=== PATIENT | male | born 1950 | race Caucasian/White ===

== ENCOUNTER → 2016-07-18 | Outpatient (REF) | payer MEDICARE, OTHER ==
[~2016-07-18] MED LIST: /PRAV20TA PO; /WARF25TA PO; ASPI81TA21 PO; ASPI81TA51 PO; COUM2.5T11 PO; FLON0.05; GLUCTAB6 PO; IBUP200C PO; LEVO50TA4 PO; OXYC-299 PO; OXYC30TA4 PO; PERC5TAB6 PO; PERCOCET PO; PRAV10TA PO; TYLE325T5 PO; move free OR; tramadol
== END ==
LOC: M LAB REF 09:41
PROVIDERS: ATTEND Ophthalmology
DX: H02.839 Dermatochalasis of unspecified eye, unspecified eyelid (principal)

== ENCOUNTER → 2016-10-09 | Outpatient (REF) | payer MEDICARE, OTHER | LOC: M SFHCLERA 13:41 | PROVIDERS: ATTEND Family Medicine | DX: E78.2 Mixed hyperlipidemia (principal); E03.9 Hypothyroidism, unspecified ==

== ENCOUNTER → 2016-10-13 | Outpatient (REF) | payer MEDICARE, OTHER ==
[2016-10-13 11:33] LABS: MEAN CORPUSCULAR HEMOGLOBIN 32.1 pg (27.0-33.0); MEAN CORPUSCULAR HGB CONC 33.9 g/dl (32.0-36.5); MEAN CORPUSCULAR VOLUME 94.6 fl (80.0-96.0); RED CELL DISTRIBUTION WIDTH 12.9 % (11.5-14.5); WHITE BLOOD COUNT 5.4 K/mm3 (4.0-10.0)
[2016-10-13 12:01] LABS: ALBUMIN 3.6 GM/DL (3.2-5.2); ALBUMIN/GLOBULIN RATIO 1.09 (1.00-1.93); ALKALINE PHOSPHATASE 86 U/L (45-117); ALT/SGPT 27 U/L (12-78); ANION GAP 7 MEQ/L (8-16); AST/SGOT 22 U/L (15-37); BILIRUBIN,TOTAL 0.3 MG/DL (0.2-1.0); BLOOD UREA NITROGEN 15 MG/DL (7-18); CALCIUM LEVEL 8.8 MG/DL (8.8-10.2); CARBON DIOXIDE LEVEL 29 MEQ/L (21-32); CHLORIDE LEVEL 107 MEQ/L (98-107); CHOLESTEROL LEVEL 170 MG/DL (<200); CREATININE FOR GFR 0.72 MG/DL (0.70-1.30); GLOMERULAR FILTRATION RATE > 60.0 (>49); GLUCOSE, FASTING 91 MG/DL (80-110); POTASSIUM SERUM 4.9 MEQ/L (3.5-5.1); SODIUM LEVEL 143 MEQ/L (136-145); TOTAL PROTEIN 6.9 GM/DL (6.4-8.2); TRIGLYCERIDES LEVEL 36 MG/DL (<150)
== END ==
LOC: M SFHCLERA 08:06
PROVIDERS: ATTEND Family Medicine
DX: E78.2 Mixed hyperlipidemia (principal); E03.9 Hypothyroidism, unspecified

== ENCOUNTER 2017-01-04 07:15 | Outpatient (CLI) | payer MEDICARE, OTHER ==
[~2017-01-04] VITALS: Ht 180.3 cm; Wt 81.2 kg
[~2017-01-04 07:15] MED LIST changes: +ATOR40TA75 PO; -COUM2.5T11 PO; +COUM2.5T17 PO; -IBUP200C PO; +IBUP200C10 PO; +LEVO50TA5 PO; +NS 1,000 ML IV SCH; +OXYC-141 PO; -OXYC-299 PO; +PERC5TAB12 PO; -PERC5TAB6 PO; -PRAV10TA PO; +PRAV10TA4 PO
[2017-01-04] MEDS ORDERED: PROPOFOL 200 MG/20 ML VIAL As Ordered ONE (07:57)
--- NOTE | 2017-01-04 09:08 | ROOR ---
Patient Name: All Danielle Procedure Date: 01/04/2017 8:43 AM Date of : 1950 Age: 66 Room: [facility] Gender: Male Note Status: Finalized Procedure: Colonoscopy Indications: Screening for colorectal malignant neoplasm Providers: Tay Ventura Jr, MD Referring MD: [facility], [place] Requesting Provider: Medicines: Propofol per Anesthesia Complications: No immediate complications. Procedure: Pre-Anesthesia Assessment: - Prior to the procedure, a History and Physical was performed, and patient medications and allergies were reviewed. The patient is competent. The risks and benefits of the procedure and the sedation options and risks were discussed with the patient. All questions were answered and informed consent was obtained. Patient identification and proposed procedure were verified by the physician and the nurse in the pre-procedure area and in the procedure room. Mental Status Examination: alert and oriented. Airway Examination: normal oropharyngeal airway and neck mobility. Respiratory Examination: clear to auscultation. CV Examination: normal. ASA Grade Assessment: II - A patient with mild systemic disease. After reviewing the risks and benefits, the patient was deemed in satisfactory condition to undergo the procedure. The anesthesia plan was to use moderate sedation / analgesia (conscious sedation). Immediately prior to administration of medications, the patient was re-assessed for adequacy to receive sedatives. The heart rate, respiratory rate, oxygen saturations, blood pressure, adequacy of pulmonary ventilation, and response to care were monitored throughout the procedure. The physical status of the patient was re-assessed after the procedure. The Colonoscope was introduced through the anus and advanced to the cecum, identified by appendiceal orifice and ileocecal valve. The colonoscopy was performed without difficulty. The patient tolerated the procedure well. The quality of the bowel preparation was adequate. Findings: The perianal and digital rectal examinations were normal. Pertinent negatives include normal sphincter tone, no palpable rectal lesions and no anal lesion or abnormality was detected. Multiple small and large-mouthed diverticula were found in the sigmoid colon. The rectum, recto-sigmoid colon, descending colon, transverse colon, ascending colon, cecum, appendiceal orifice and ileocecal valve appeared normal. Impression: - Diverticulosis in the sigmoid colon. - The rectum, recto-sigmoid colon, descending colon, transverse colon, ascending colon, cecum, appendiceal orifice and ileocecal valve are normal. - No specimens collected. Recommendation: - Discharge patient to home (ambulatory). - Repeat colonoscopy in 10 years for screening purposes. Tay Ventura MD Tay Ventura Jr, MD 01/04/2017 9:08:27 AM This report has been signed electronically. Number of Addenda: 0 Note Initiated On: 01/04/2017 8:43 AM Estimated Blood Loss: Estimated blood loss: none.
[2017-01-04 09:30] VITALS: BP 118/67
== END 2017-01-04 09:45 | disposition home or self-care (01) ==
LOC: M OPP 07:15
PROVIDERS: ATTEND Surgery
DX: Z12.11 Encounter for screening for malignant neoplasm of colon (principal); K57.30 Diverticulosis of large intestine without perforation or abscess without bleeding; E78.00 Pure hypercholesterolemia, unspecified; E03.9 Hypothyroidism, unspecified; M19.90 Unspecified osteoarthritis, unspecified site; R06.83 Snoring; L29.0 Pruritus ani; Z79.899 Other long term (current) drug therapy; Z88.5 Allergy status to narcotic agent

== ENCOUNTER → 2017-04-02 | Outpatient (REF) | payer MEDICARE, OTHER ==
[~2017-04-02] MED LIST changes: -NS 1,000 ML IV SCH
[2017-04-02 12:10] LABS: MEAN CORPUSCULAR HEMOGLOBIN 30.9 pg (27.0-33.0); MEAN CORPUSCULAR HGB CONC 32.4 g/dl (32.0-36.5); MEAN CORPUSCULAR VOLUME 95.3 fl (80.0-96.0); PLATELET COUNT, AUTOMATED 252 10^3/uL (150-450); RED CELL DISTRIBUTION WIDTH 12.9 % (11.5-14.5); WHITE BLOOD COUNT 5.5 10^3/uL (4.0-10.0)
[2017-04-02 12:18] LABS: FREE T4 0.98 NG/DL (0.76-1.46)
== END ==
LOC: M SFHCLERA 08:10
PROVIDERS: ATTEND Family Medicine
DX: E03.9 Hypothyroidism, unspecified (principal)

== ENCOUNTER → 2017-10-08 | Outpatient (REF) | payer MEDICARE, OTHER ==
[2017-10-08 11:40] LABS: HEMATOCRIT 41.1 % (42.0-52.0); HEMOGLOBIN 13.9 g/dl (13.5-17.5); MEAN CORPUSCULAR HEMOGLOBIN 31.9 pg (27.0-33.0); MEAN CORPUSCULAR HGB CONC 33.8 g/dl (32.0-36.5); MEAN CORPUSCULAR VOLUME 94.3 fl (80.0-96.0); PLATELET COUNT, AUTOMATED 240 10^3/uL (150-450); RED BLOOD COUNT 4.36 10^6/uL (4.30-6.10); RED CELL DISTRIBUTION WIDTH 12.8 % (11.5-14.5); WHITE BLOOD COUNT 5.4 10^3/uL (4.0-10.0)
[2017-10-08 13:09] LABS: FREE T4 0.94 NG/DL (0.76-1.46)
== END ==
LOC: M SFHCLERA 08:06
DX: E03.9 Hypothyroidism, unspecified (principal)
CPT/HCPCS: 84443

== ENCOUNTER → 2018-04-16 | Outpatient (REF) | payer MEDICARE, OTHER ==
[2018-04-16 12:22] LABS: ALBUMIN 3.9 GM/DL (3.2-5.2); ALBUMIN/GLOBULIN RATIO 1.15 (1.00-1.93); ALKALINE PHOSPHATASE 89 U/L (45-117); ALT/SGPT 32 U/L (12-78); ANION GAP 4 MEQ/L (8-16); AST/SGOT 23 U/L (7-37); BILIRUBIN,TOTAL 0.5 MG/DL (0.2-1.0); BLOOD UREA NITROGEN 14 MG/DL (7-18); CALCIUM LEVEL 9.4 MG/DL (8.8-10.2); CARBON DIOXIDE LEVEL 30 MEQ/L (21-32); CHLORIDE LEVEL 105 MEQ/L (98-107); CHOLESTEROL LEVEL 158 MG/DL (<200); CHOLESTEROL RISK RATIO 2.358 (<5); CREATININE FOR GFR 0.66 MG/DL (0.70-1.30); GLOMERULAR FILTRATION RATE > 60.0 (>49); GLUCOSE, FASTING 82 MG/DL (70-100); HDL CHOLESTEROL 67 MG/DL (>40); LDL CHOLESTEROL 84 MG/DL (<100); NON-HDL-C 91 MG/DL; POTASSIUM SERUM 5.2 MEQ/L (3.5-5.1); SODIUM LEVEL 139 MEQ/L (136-145); TOTAL PROTEIN 7.3 GM/DL (6.4-8.2); TRIGLYCERIDES LEVEL 34 MG/DL (<150)
== END ==
LOC: M SFHCLERA 08:19
DX: E78.2 Mixed hyperlipidemia (principal); E03.9 Hypothyroidism, unspecified
CPT/HCPCS: 84443

== ENCOUNTER → 2018-10-07 | Outpatient (REF) | payer MEDICARE, OTHER ==
[~2018-10-07] MED LIST changes: -/PRAV20TA PO; -/WARF25TA PO; +COUM1TAB18 PO; -IBUP200C10 PO; +IBUP200C25 PO; +OXYC1TAB23 PO; -PERCOCET PO; +PRAV1TAB39 PO
[2018-10-07 12:17] LABS: BLOOD UREA NITROGEN 16 MG/DL (7-18); CALCIUM LEVEL 8.8 MG/DL (8.8-10.2); CARBON DIOXIDE LEVEL 29 MEQ/L (21-32); CHLORIDE LEVEL 107 MEQ/L (98-107); CHOLESTEROL LEVEL 181 MG/DL (<200); CHOLESTEROL RISK RATIO 2.445 (<5); CREATININE FOR GFR 0.68 MG/DL (0.70-1.30); GLOMERULAR FILTRATION RATE > 60.0 (>49); GLUCOSE, FASTING 85 MG/DL (70-100); HDL CHOLESTEROL 74 MG/DL (>40); LDL CHOLESTEROL 101 MG/DL (<100); NON-HDL-C 107 MG/DL; POTASSIUM SERUM 4.6 MEQ/L (3.5-5.1); SODIUM LEVEL 139 MEQ/L (136-145); TRIGLYCERIDES LEVEL 30 MG/DL (<150)
== END ==
LOC: M SFHCLERA 08:21
PROVIDERS: ATTEND Family Medicine
DX: E78.2 Mixed hyperlipidemia (principal); E03.9 Hypothyroidism, unspecified

== ENCOUNTER → 2019-03-12 | Outpatient (REF) | payer MEDICARE, OTHER ==
[2019-03-12 11:50] LABS: BLOOD UREA NITROGEN 15 MG/DL (7-18); CARBON DIOXIDE LEVEL 30 MEQ/L (21-32); CHLORIDE LEVEL 106 MEQ/L (98-107); CHOLESTEROL LEVEL 153 MG/DL (<200); CHOLESTEROL RISK RATIO 1.987 (<5); GLOMERULAR FILTRATION RATE > 60.0 (>49); GLUCOSE, FASTING 91 MG/DL (70-100); HDL CHOLESTEROL 77 MG/DL (>40); LDL CHOLESTEROL 70 MG/DL (<100); NON-HDL-C 76 MG/DL; POTASSIUM SERUM 4.7 MEQ/L (3.5-5.1); SODIUM LEVEL 140 MEQ/L (136-145); TRIGLYCERIDES LEVEL 31 MG/DL (<150)
== END ==
LOC: M SFHCLERA 07:49
PROVIDERS: ATTEND Family Medicine
DX: E78.2 Mixed hyperlipidemia (principal); E03.9 Hypothyroidism, unspecified

== ENCOUNTER → 2019-03-17 | Outpatient (REF) | payer MEDICARE, OTHER | LOC: M SFHCLERA 11:32 | PROVIDERS: ATTEND Family Medicine | DX: L60.8 Other nail disorders (principal); Z23 Encounter for immunization | CPT/HCPCS: 87101; 90472; 90682; 90715; G0008; G0463 ==

== ENCOUNTER → 2019-04-25 | Outpatient (CLI) | payer MEDICARE, OTHER ==
--- NOTE | 2019-04-25 11:13 | REP ---
Two-view chest: 04/25/2019. Indication: Cough. Comparison: 04/02/2014. Findings: The lungs are clear. There is no pleural effusion or pneumothorax. The cardiomediastinal silhouette is unremarkable. Impression: No acute cardiopulmonary process. Electronically Signed by Nitin Pereyra DO 04/25/2019 11:05 A
== END ==
LOC: M LRY 10:25
PROVIDERS: ATTEND Family Medicine
DX: R05 Cough (principal)
CPT/HCPCS: 71046; G0463

== ENCOUNTER → 2019-06-10 | Outpatient (CLI) | payer MEDICARE, OTHER ==
[~2019-06-10] MED LIST changes: +CONRAY-43 43% 50ML VIAL (Q9960) As Ordered ONE; +LIDOCAINE 1% MDV 20ML VIAL As Ordered ONE; +methylPREDNISolone SUSP 40 MG/ML (DEPO-medrol) VIAL (J1030) As Ordered ONE
--- NOTE | 2019-06-10 18:26 | REP ---
Left hip injection The procedure was performed under the direct supervision of Dr. Moore. The benefits and risks including but not limited to pain infection and bleeding and anaphylaxis were explained to the patient and informed consent was obtained. The left femoral neck was localized using fluoroscopic guidance. The skin was prepped and draped in a sterile fashion. 1% lidocaine was used as a local anesthetic. Using fluoroscopic guidance a 22-gauge spinal needle was inserted and advanced to the femoral neck. 0.5 ml of Conray 43 was injected to verify placement. 6 ml of a solution containing 5 ml of 1% Xylocaine and 2 ml of Depo-Medrol 40 mg was injected. The needle was then removed. The patient tolerated the procedure well and there were no immediate complications. Less than 6 seconds of fluoro time was utilized for this procedure. Electronically Signed by ESTELA Bautista 06/10/2019 04:14 P Electronically Signed by Minesh Moore MD 06/10/2019 06:17 P
== END ==
LOC: M RADPRO 08:26
PROVIDERS: ATTEND Physician Assistant
DX: M16.12 Unilateral primary osteoarthritis, left hip (principal)
CPT/HCPCS: 20610; 77002; J1030; Q9960

== ENCOUNTER → 2019-10-01 | Outpatient (CLI) | payer MEDICARE, OTHER ==
[~2019-10-01] MED LIST changes: -CONRAY-43 43% 50ML VIAL (Q9960) As Ordered ONE; -LIDOCAINE 1% MDV 20ML VIAL As Ordered ONE; -methylPREDNISolone SUSP 40 MG/ML (DEPO-medrol) VIAL (J1030) As Ordered ONE
[2019-10-01 11:56] LABS: BASO # 0.1 10^3/uL (0.0-0.2); BASO % 0.8 % (0.0-1.0); EOS # 0.2 10^3/uL (0.0-0.5); EOS % 2.7 % (0.0-3.0); HEMATOCRIT 38.7 % (42.0-52.0); LYMPH # 1.1 10^3/uL (1.5-5.0); LYMPH % 17.9 % (24.0-44.0); MEAN CORPUSCULAR HEMOGLOBIN 31.7 pg (27.0-33.0); MEAN CORPUSCULAR HGB CONC 33.6 g/dl (32.0-36.5); MEAN CORPUSCULAR VOLUME 94.4 fl (80.0-96.0); MONO # 0.7 10^3/uL (0.0-0.8); MONO % 11.3 % (0.0-5.0); NEUTROPHILS # 4.3 10^3/uL (1.5-8.5); NEUTROPHILS % 66.8 % (36.0-66.0); PLATELET COUNT, AUTOMATED 265 10^3/uL (150-450); WHITE BLOOD COUNT 6.4 10^3/uL (4.0-10.0)
[2019-10-01 13:04] LABS: ERYTHROCYTE SEDIMENTATION RATE 18 mm/hr (0-20)
== END ==
LOC: M LRY 09:10
PROVIDERS: ATTEND Physician Assistant
DX: Z96.653 Presence of artificial knee joint, bilateral (principal); E78.2 Mixed hyperlipidemia; E03.9 Hypothyroidism, unspecified

== ENCOUNTER → 2019-10-01 | Outpatient (REF) | payer MEDICARE, OTHER ==
[2019-10-01 12:44] LABS: CHOLESTEROL RISK RATIO 2.073 (<5); THYROID STIMULATING HORMONE 1.86 uIU/ML (0.358-3.740)
== END ==
LOC: M SFHCLERA 09:02
PROVIDERS: ATTEND Family Medicine
DX: E78.2 Mixed hyperlipidemia (principal); E03.9 Hypothyroidism, unspecified

== ENCOUNTER → 2019-10-09 | Outpatient (CLI) | payer MEDICARE, OTHER ==
--- NOTE | 2019-10-09 14:59 | REP ---
TRIPLE PHASE BONE SCAN OF THE KNEES: Following the intravenous administration of 22 millicuries technetium 99m MDP, patient's knees are imaged in the flow phase in the anterior and posterior projections. There is symmetrical blood flow bilaterally. Immediate blood pool and 3-hour delayed images are performed in the knees and various projections. Photopenic knee prostheses are seen bilaterally. There is no abnormal blood pooling. There is normal delayed activity in the osseous structures of the knee status post arthroplasty. No asymmetric increased activity is seen bilaterally. IMPRESSION: Bilateral knee arthroplasties showing expected normal uptake in the osseous structures along the prosthetic components. No asymmetric abnormality. Electronically Signed by Yan Downing MD 10/09/2019 03:42 P
== END ==
LOC: M RAD 10:24
PROVIDERS: ATTEND Physician Assistant
DX: Z96.652 Presence of left artificial knee joint (principal)
CPT/HCPCS: 78315; A9503

== ENCOUNTER → 2019-11-05 | Outpatient (CLI) | payer MEDICARE, OTHER ==
[~2019-11-05] MED LIST changes: +ASPI81TA85 PO; +MS C15TA8 PO; +QC A650T3 PO; +TRAM50TA2 PO; +XARE10TA PO
[2019-11-05 10:44] LABS: HEMATOCRIT 39.9 % (42.0-52.0); HEMOGLOBIN 12.9 g/dl (13.5-17.5); MEAN CORPUSCULAR HEMOGLOBIN 30.9 pg (27.0-33.0); MEAN CORPUSCULAR HGB CONC 32.3 g/dl (32.0-36.5); MEAN CORPUSCULAR VOLUME 95.7 fl (80.0-96.0); PLATELET COUNT, AUTOMATED 256 10^3/uL (150-450); RED BLOOD COUNT 4.17 10^6/uL (4.30-6.10); WHITE BLOOD COUNT 6.5 10^3/uL (4.0-10.0)
[2019-11-05 10:55] LABS: INR 1.06; PROTHROMBIN TIME 13.5 SECONDS (11.8-14.0)
[2019-11-05 11:10] LABS: ERYTHROCYTE SEDIMENTATION RATE 15 mm/hr (0-20)
[2019-11-05 11:12] LABS: ALBUMIN 4.1 GM/DL (3.2-5.2); ALT/SGPT 31 U/L (12-78); BILIRUBIN,TOTAL 0.6 MG/DL (0.2-1.0); BLOOD UREA NITROGEN 15 MG/DL (7-18); CALCIUM LEVEL 9.6 MG/DL (8.8-10.2); CARBON DIOXIDE LEVEL 30 MEQ/L (21-32); CHLORIDE LEVEL 101 MEQ/L (98-107); CREATININE FOR GFR 0.66 MG/DL (0.70-1.30); GLOMERULAR FILTRATION RATE > 60.0 (>49); GLUCOSE, FASTING 85 MG/DL (70-100); POTASSIUM SERUM 4.7 MEQ/L (3.5-5.1); SODIUM LEVEL 136 MEQ/L (136-145); TOTAL PROTEIN 7.3 GM/DL (6.4-8.2)
--- NOTE | 2019-11-05 11:30 | REP ---
CHEST, TWO VIEWS: COMPARISON: 04/25/2019 Two views of the chest were performed and demonstrate no acute infiltrate. The heart is normal in size. The mediastinal silhouette is unchanged. There are degenerative changes of the spine with mild curvature toward the right. There are two mild chronic compression deformities of the lower thoracic spine unchanged. IMPRESSION: No acute pulmonary disease. Electronically Signed by Yan Downing MD 11/05/2019 12:57 P
--- NOTE | 2019-11-06 08:37 | ECGEPIP ---
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 Rule out prior septal infarction. No prior tracing for comparison. Clincal correlation advised Electronically Signed on 11-06-2019 8:37:14 EDT by Srinath Abernathy
== END ==
LOC: M LAB 09:43
PROVIDERS: ATTEND Orthopaedic Surgery
DX: Z01.818 Encounter for other preprocedural examination (principal); M16.12 Unilateral primary osteoarthritis, left hip

== ENCOUNTER → 2019-11-07 | Outpatient (CLI) | payer MEDICARE, OTHER | LOC: M LABSMTC 11:08 | PROVIDERS: ATTEND Anesthesiology | DX: Z01.818 Encounter for other preprocedural examination (principal); Z11.59 Encounter for screening for other viral diseases ==

== ENCOUNTER 2019-11-10 06:01 | Inpatient (IN) | payer MEDICARE, OTHER ==
--- NOTE | 2019-11-07 11:57 | HPE ---
DATE OF ANTICIPATED ADMISSION: 11/10/2019 ATTENDING PHYSICIAN: Dr. Sony Oreilly HISTORY: This is a pleasant 69-year-old male patient with progressively worsening left hip pain and stiffness who has failed to improve with conservative management. He has consented for surgical intervention for his continued symptoms. He has been consented by Dr. Sony Oreilly for a left total hip arthroplasty. ALLERGIES: NO KNOWN DRUG ALLERGIES. CURRENT MEDICATIONS: - Patanol solution 1 drop both eyes as needed - 81 mg aspirin one by mouth daily - tizanidine 1 tablet by mouth three times a day as needed - Flonase 1 spray each nostril daily - levothyroxine 50 mcg one by mouth daily - atorvastatin 40 mg one by mouth daily PAST MEDICAL HISTORY: Hyperlipidemia. Hypothyroidism Allergic rhinitis Chronic left knee pain. Actinic keratosis. PAST SURGICAL HISTORY: Left leg open wound. Left total knee replacement. Right total knee replacement. FAMILY HISTORY: Noncontributory. SOCIAL HISTORY: The patient is a nonsmoker and does not use alcohol. REVIEW OF SYSTEMS: Denies fever, chills, chest pain, shortness breath, nausea, vomiting, diarrhea, recent upper respiratory or urinary tract infection symptoms. Reports pain with weightbearing activity in the left hip. PHYSICAL EXAMINATION: Height 5, 7-1/2. Weight 179.8. Temperature 98.6. Blood pressure 122/40. Pulse 68. Respirations 40. He is normocephalic, atraumatic, in no apparent distress. Neck is supple and nontender with no lymphadenopathy or jugular venous distention (JVD). S1, S2 auscultated with no murmurs, rubs, or gallops. Lungs: Clear to auscultation bilaterally with no wheezes, rales, or rhonchi. Abdomen: Soft, nontender. Left hip with discomfort through range of motion and left lower extremity is well perfused and has intact neurovascular status. CHEST X-RAY: No acute cardiopulmonary process. EKG: Normal sinus rhythm, left axis deviation with probable left anterior hemiblock, poor precordial R wave progression. LABORATORY DATA: Red count 4.17, hemoglobin 12.9, hematocrit 39.9. ESR 15. BUN 15, creatinine 0.66. PT 13.5, INR 1.06. MEDICAL OPTIMIZATION: By Dr. Metzger present today for review. Patient is optimized for left total hip arthroplasty. IMPRESSION: Left hip symptomatic degenerative changes. PLAN: Consented for left total hip arthroplasty with Dr. Sony Oreilly. Patient has stopped his baby aspirin and is aware medications to take prior to procedure. He will be nothing by mouth after midnight the night prior.
[~2019-11-10] VITALS: Ht 180.3 cm; Wt 82.1 kg
[2019-11-10] VITALS (8 sets, daily range): BP systolic 105–120; BP diastolic 62–66
[~2019-11-10 06:01] MED LIST changes: +LIDOCAINE 1% MDV 20ML VIAL SQ PRN; +LR 1,000 ML IV SCH; -MS C15TA8 PO; -QC A650T3 PO; -TRAM50TA2 PO; -XARE10TA PO
[2019-11-10] MEDS ORDERED: ceFAZolin 1GM VIAL (J0690 PER 500MG) As Ordered ONE (07:13)
[2019-11-10] MEDS ORDERED: EPINEPHrine INJ 1 MG/ML 1ML AMP As Ordered ONE (07:14)
[2019-11-10] MEDS ORDERED: TRANEXAMIC ACID 100 MG/ML 10ML VIAL As Ordered ONE (07:14)
[2019-11-10] MEDS ORDERED: BUPIVACAINE LIPOSOME/PF 1.3% 20ML VIAL (13.3MG/ML)(EXPAREL)(C9290 PER1MG) As Ordered ONE (07:15)
[2019-11-10] MEDS ORDERED: ceFAZolin 2 GM/D5W 50 ML IV BAG (J0690 PER 500MG) As Ordered ONE (07:17)
[2019-11-10] MEDS ORDERED: ceFAZolin SOD 2 GM in IV 1 EA IV ONE (07:30)
--- NOTE | 2019-11-10 07:52 | IPN ---
DATE: 11/10/2019 The patient is seen and examined. He wishes to go ahead with a left total hip arthroplasty. He understands the nature of this and the risks of bleeding, infection, damage to nerves, vessels, persistent pain, wear, loosening, dislocation, leg length inequality, blood clots, medical problems, among others.
[2019-11-10] MEDS ORDERED: fentaNYL 100 MCG/2 ML INJECTION (J3010) As Ordered ONE (08:13)
[2019-11-10] MEDS ORDERED: LIDOCAINE 2% 100MG/5ML SDV (FOR ANES.) As Ordered ONE (08:13)
[2019-11-10] MEDS ORDERED: MIDAZOLAM INJ 2MG/2ML VIAL (J2250 PER 1MG) As Ordered ONE (08:13)
[2019-11-10] MEDS ORDERED: propofoL 200 MG/20 ML VIAL As Ordered ONE ×2 (08:13→08:26)
[2019-11-10] MEDS ORDERED: ONDANSETRON 4MG/2ML VIAL As Ordered ONE (08:13)
[2019-11-10] MEDS ORDERED: ePHEDrine SULFATE 25 MG/5 ML(5MG/ML) SYRINGE As Ordered ONE (08:18)
[2019-11-10] MEDS ORDERED: ACETAMINOPHEN 1000MG 100ML IV BTL (OFIRMEV) (J0131 PER 10MG) As Ordered ONE (08:19)
[2019-11-10] MEDS ORDERED: PHENYLephrine HCL 500 MCG/5 ML (100MCG/ML) SYRINGE (J2370) As Ordered ONE ×2 (08:28→09:28)
[2019-11-10] MEDS ORDERED: KETAMINE HCL 200 MG/20 ML VIAL As Ordered ONE (09:24)
[2019-11-10] MEDS ORDERED: fentaNYL 100 MCG/2 ML INJECTION (J3010) IV PRN (10:00)
[2019-11-10] MEDS ORDERED: HYDROMORPHONE HCL 0.5 MG/ 0.5 ML SYRINGE (J1170 PER 1) IV PRN ×2 (10:00→10:30)
[2019-11-10] MEDS ORDERED: ONDANSETRON 4MG/2ML VIAL IV PRN (10:00)
[2019-11-10] MEDS ORDERED: LR 1,000 ML IV SCH (10:00)
[2019-11-10] MEDS ORDERED: ACETAMINOPHEN TAB 650MG DOSE (2X325MG) PO PRN (10:15)
[2019-11-10] MEDS: LR 1,000 ML IV SCH ×2 (10:15→23:35)
[2019-11-10] MEDS ORDERED: PERCOCET 5MG/325MG TAB PO PRN ×3 (10:15→17:00)
--- NOTE | 2019-11-10 10:37 | IPN ---
DATE: 11/10/2019 Postoperative x-ray shows excellent position of the components. The screws appear to be in good position. The overall leg length looks to be appropriate and symmetric. [facility]
--- NOTE | 2019-11-10 10:49 | CR.PDOC ---
General Date of Consultation: Nov 10, 2019 Consultation REASON FOR CONSULTATION/CHIEF COMPLAINT: s/p L RENE HISTORY OF PRESENT ILLNESS: 69 y.o male w/ PMH of HLD & Hypothyroidism is being admitted s/p L RENE. Patient is seen in PACU, comfortable, still has no sensation or strength in his lower extremities due to the anesthesia. He has no complaints at this time. He denies any shortness of breath, chest pain, nausea, vomiting or diarrhea. 10 point review of system is negative except for above ALLERGIES: Please see below. HOME MEDICATIONS: Please see below. PAST MEDICAL HISTORY: 1. Hypothyroidism. 2. Hyperlipidemia. PAST SURGICAL HISTORY: 1. Bilateral knee replacement FAMILY HISTORY: Positive for heart disease SOCIAL HISTORY: Denies smoking. Social lives Denies drug use PHYSICAL EXAMINATION: VITAL SIGNS: Please see below. GENERAL: No distress HEENT: Normocephalic, atraumatic, moist mucous membranes NECK: Supple CARDIOVASCULAR EXAMINATION: S1, S2, no murmurs RESPIRATORY EXAMINATION: Clear to auscultation, no wheezing ABDOMINAL EXAMINATION: Soft, nontender, nondistended, positive bowel sounds EXTREMITIES: Range of motion limited due to anesthesia SKIN: No rash NEUROLOGICAL EXAMINATION: Alert and oriented 3, no focal deficits PSYCHIATRIC EXAMINATION: Calm and cooperative LABORATORY DATA: Please see below. ASSESSMENT/PLAN: 69-year-old male with past medical history of hypothyroidism and hyperlipidemia is being admitted status post left total hip arthroplasty. 1. Left total hip arthroplasty. Some management as per primary team, DVT prophylaxis for Xarelto. 2. Hypothyroidism. Continue levothyroxine 3. Hyperlipidemia. Continue atorvastatin Vital Signs/I&O Vital Signs Date Time Temp Pulse Resp B/P (MAP) Pulse Ox O2 Delivery O2 Flow Rate FiO2 11/10/19 10:20 97.3 54 16 100/64 (76) 100 Room Air 11/10/19 09:49 2 Allergies Coded Allergies: morphine (Verified Allergy, Intermediate, NAUSEA, RASH, 11/04/19) Home Medications Scheduled Aspirin (Aspir 81) 81 Mg Tablet.dr, 81 MG PO DAILY, #30 (Reported) Atorvastatin Calcium (Atorvastatin Calcium) 40 Mg Tab, 40 MG PO DAILY, (Reported) Levothyroxine Sodium (Levothyroxine Sodium) 50 Mcg Tab, 50 MCG PO DAILY, (Reported) PINEDA BELLO MD Nov 10, 2019 10:49
[2019-11-10] MEDS: LEVOTHYROXINE 50MCG TABLET (0.05MG) PO SCH (13:17)
[2019-11-10] MEDS: ATORVASTATIN 20 MG TAB PO SCH (13:17)
[2019-11-10] MEDS: HYDROMORPHONE HCL 0.5 MG/ 0.5 ML SYRINGE (J1170 PER 1) IV PRN ×2 (14:45→20:50)
[2019-11-10] MEDS: ceFAZolin SOD 2 GM in IV 1 EA IV SCH (16:09)
[2019-11-10] MEDS ORDERED: KETOROLAC 30 MG/ML 1ML VIAL IV ONE (16:45)
[2019-11-10] MEDS: PERCOCET 5MG/325MG TAB PO PRN ×2 (18:28→23:14)
--- NOTE | 2019-11-10 22:55 | REP ---
LEFT HIP: Two views of left hip performed. There is a total left hip prosthesis in good position. Osseous structures are intact and well aligned. Metallic skin tana are seen laterally. Electronically Signed by Yan Downing MD 11/10/2019 11:17 P
[2019-11-11] MEDS: ceFAZolin SOD 2 GM in IV 1 EA IV SCH (00:55)
[2019-11-11 02:00] VITALS: BP 104/65
[2019-11-11] MEDS: HYDROMORPHONE HCL 0.5 MG/ 0.5 ML SYRINGE (J1170 PER 1) IV PRN (02:21)
[2019-11-11] MEDS: PERCOCET 5MG/325MG TAB PO PRN ×3 (04:48→14:14)
[2019-11-11 06:00] VITALS: BP 115/68
[2019-11-11] MEDS: LEVOTHYROXINE 50MCG TABLET (0.05MG) PO SCH (06:06)
[2019-11-11] MEDS ORDERED: MS C15TA8 PO (06:59)
[2019-11-11] MEDS ORDERED: PERC5TAB12 PO (06:59)
[2019-11-11] MEDS ORDERED: XARE10TA PO (07:50)
[2019-11-11 08:30] LABS: HEMATOCRIT 30.3 % (42.0-52.0); HEMOGLOBIN 9.8 g/dl (13.5-17.5); MEAN CORPUSCULAR HEMOGLOBIN 31.5 pg (27.0-33.0); MEAN CORPUSCULAR HGB CONC 32.3 g/dl (32.0-36.5); MEAN CORPUSCULAR VOLUME 97.4 fl (80.0-96.0); PLATELET COUNT, AUTOMATED 190 10^3/uL (150-450); RED BLOOD COUNT 3.11 10^6/uL (4.30-6.10); WHITE BLOOD COUNT 7.8 10^3/uL (4.0-10.0)
[2019-11-11 08:35] VITALS: BP 108/59
[2019-11-11] MEDS ORDERED: MORPHINE 15 MG SA TAB PO SCH (09:00)
[2019-11-11] MEDS: MIRALAX *UNIT DOSE* 17GM PACKET PO SCH (09:22)
[2019-11-11] MEDS: ASPIRIN 81 MG ENTERIC TAB PO SCH (09:22)
[2019-11-11] MEDS: MOM 30ML SUSPENSION UDC PO SCH (09:22)
[2019-11-11] MEDS: ATORVASTATIN 20 MG TAB PO SCH (09:23)
[2019-11-11] MEDS ORDERED: KETOROLAC 30 MG/ML 1ML VIAL IV PRN (09:45)
[2019-11-11 10:00] VITALS: BP 109/67
[2019-11-11 14:00] VITALS: BP 112/68
[2019-11-11] MEDS ORDERED: HYDROmorphone 2 MG TAB As Ordered ONE (15:07)
[2019-11-11] MEDS: HYDROmorphone 2 MG TAB PO PRN ×2 (15:08→20:09)
[2019-11-11] MEDS: RIVAROXABAN 10 MG TAB (XARELTO) PO SCH (17:05)
[2019-11-11 22:00] VITALS: BP 112/68
[2019-11-12] MEDS: HYDROmorphone 2 MG TAB PO PRN ×3 (00:36→11:42)
[2019-11-12] MEDS: PERCOCET 5MG/325MG TAB PO PRN (02:34)
[2019-11-12 06:00] VITALS: BP 110/67
[2019-11-12] MEDS ORDERED: ACETAMINOPHEN TAB 650MG DOSE (2X325MG) PO SCH (06:00)
[2019-11-12] MEDS: LEVOTHYROXINE 50MCG TABLET (0.05MG) PO SCH (06:09)
[2019-11-12] MEDS ORDERED: traMADol 50 MG TAB PO PRN (06:30)
[2019-11-12] MEDS ORDERED: XARE10TA PO (07:18)
[2019-11-12] MEDS: MIRALAX *UNIT DOSE* 17GM PACKET PO SCH (09:05)
[2019-11-12] MEDS: ASPIRIN 81 MG ENTERIC TAB PO SCH (09:05)
[2019-11-12] MEDS: MOM 30ML SUSPENSION UDC PO SCH (09:05)
[2019-11-12] MEDS: ATORVASTATIN 20 MG TAB PO SCH (09:05)
--- NOTE | 2019-11-12 09:43 | REP ---
LEFT HIP, TWO VIEWS: Two views of the left hip are performed. There is a total hip prosthesis in good position, unchanged since the prior study of 11/10/2019. IMPRESSION: Stable exam. Electronically Signed by Yan Downing MD 11/13/2019 10:26 A
--- NOTE | 2019-11-12 12:59 | IPNPDOC ---
Text Note Date of Service The patient was seen on 11/12/19. NOTE SUBJECTIVE: Left hip pain as expected in [facility] site on dilaudid. Working with PT. VITAL SIGNS: Please see below. GENERAL: No distress HEENT: Normocephalic, atraumatic, moist mucous membranes NECK: Supple CARDIOVASCULAR EXAMINATION: S1, S2, no murmurs RESPIRATORY EXAMINATION: Clear to auscultation, no wheezing ABDOMINAL EXAMINATION: Soft, nontender, nondistended, positive bowel sounds EXTREMITIES: Range of motion limited due to anesthesia SKIN: No rash NEUROLOGICAL EXAMINATION: Alert and oriented 3, no focal deficits PSYCHIATRIC EXAMINATION: Calm and cooperative LABORATORY DATA: Please see below. ASSESSMENT/PLAN: 69-year-old male with past medical history of hypothyroidism and hyperlipidemia, bilateral knee replacements, chronic pain , allergic rhiniti s, actinic keratosis was admitted status post elective left total hip arthroplasty. 1. Left total hip arthroplasty. Some management as per primary team, DVT prophylaxis for Xarelto., Pain management as per ortho. 2. Hypothyroidism. Continue levothyroxine 3. Hyperlipidemia. Continue atorvastatin VS,Fishbone, I+O VS, Fishbone, I+O Vital Signs Date Time Temp Pulse Resp B/P (MAP) Pulse Ox O2 Delivery O2 Flow Rate FiO2 11/12/19 12:12 18 11/12/19 11:42 Room Air 11/12/19 06:00 98.6 96 110/67 (81) 91 11/11/19 04:48 2.0 I&O- Last 24 Hours up to 6 AM 11/12/19 06:00 Intake Total 1770 ml Output Total 1875 ml Balance -105 ml XIAO MENSAH MD Nov 12, 2019 12:59
[2019-11-12 14:00] VITALS: BP 116/65
--- NOTE | 2019-11-12 14:40 | IPN ---
DATE: 11/12/2019 Patient seen and examined today. He is having a fair amount a hip pain still. I repeated the x-ray and this shows unchanged appearance. The cup seems to be well seated but is a little deeper than typical due to his very soft bone. It does not appear to be changed at all since his postoperative x-ray. I also reviewed this with one of my partners. The position of the stem looks excellent. The overall leg length looks good based on the clinical exam and the x-ray appearance. We are going to continue with partial weightbearing on this side as this cup gradually solidifies periodically obtain x-rays.
[2019-11-12] MEDS: ACETAMINOPHEN 500 MG TAB PO SCH ×2 (14:57→22:05)
[2019-11-12] MEDS: RIVAROXABAN 10 MG TAB (XARELTO) PO SCH (18:20)
[2019-11-12 21:13] VITALS: BP 102/66
[2019-11-13] MEDS: traMADol 50 MG TAB PO PRN ×2 (04:24→09:42)
[2019-11-13 05:18] VITALS: BP 115/72
[2019-11-13] MEDS ORDERED: QC A650T3 PO ×2 (05:20→05:30)
[2019-11-13] MEDS ORDERED: TRAM50TA2 PO ×2 (05:20→05:30)
[2019-11-13] MEDS: LEVOTHYROXINE 50MCG TABLET (0.05MG) PO SCH (06:06)
[2019-11-13] MEDS: ACETAMINOPHEN 500 MG TAB PO SCH (06:06)
[2019-11-13] MEDS: ATORVASTATIN 20 MG TAB PO SCH (09:34)
[2019-11-13] MEDS: ASPIRIN 81 MG ENTERIC TAB PO SCH (09:34)
[2019-11-13] MEDS: HYDROmorphone 2 MG TAB PO PRN ×2 (09:36→12:44)
[2019-11-13] MEDS: MIRALAX *UNIT DOSE* 17GM PACKET PO SCH (09:40)
[2019-11-13] MEDS: MOM 30ML SUSPENSION UDC PO SCH (09:40)
[2019-11-13 14:00] VITALS: BP 141/91
--- NOTE | 2019-11-13 16:20 | RO ---
DATE OF PROCEDURE: 11/10/2019 PREOPERATIVE DIAGNOSIS: Left hip osteoarthritis, severe. POSTOPERATIVE DIAGNOSIS: Left hip osteoarthritis, severe. PROCEDURE: Left total hip arthroplasty using a [place] size 8 high offset +12, 36 ball and a 56 cup with two acetabular screws. SURGEON: Sony Oreilly MD STRAIGHT LINE EDGER: BLANK Parker ANESTHESIA: Spinal. ESTIMATED BLOOD LOSS (EBL): 500. COMPLICATIONS: None. INDICATIONS: 69-year-old gentleman who has had severe pain and arthritis in his left hip and he wished to go ahead with a hip replacement. He is well aware of the risks and nature of the procedure. DESCRIPTION OF PROCEDURE The patient was taken to the operating room and placed in the right lateral decubitus position on the [place] positioner. The left hip was prepped and draped in usual sterile fashion. A time-out was performed. I then created a longitudinal incision over the lateral aspect of the hip. Sharp dissection was carried down through subcutaneous tissue until the fascia was encountered. This was incised. I then divided the anterior 40% of the abductor off the anterior aspect of the hip and exposed the head and neck. We were able to dislocate the head relatively easily because the joint was a little bit laterally subluxed. I then used a canal initiating reamer, the canal finding reamer, the lateralizing reamer and then sequentially reamed up to a size 7, which had reasonably good purchase. I then made the neck cut at about three-quarters of a fingerbreadth up from the lesser trochanter and we directed our attention the acetabulum. He had copious amounts of labrum and soft tissue around the acetabulum, which made this fairly challenging, but I was able to get it cleaned out quite nicely. Also judging on the x-rays it looked like I needed to medialize the acetabulum in order to get a good concentric fit and so, I sequentially reamed starting with a 48 and reamed up to 55, which had good concentric reaming and good bleeding bone. It was noted that the cancellous bone in the acetabulum was relatively soft. However, the rim was reasonably sclerotic. I then impacted in the standard 56 cup and had an excellent fit and was it was very tight. It was all the way down to the floor. The apex hole eliminator was placed followed by the polyethylene and once I impacted in the polyethylene the cup rotated. So, I actually removed the cup, replaced it with a cluster cup in the same anteversion and horizontal tilt and ended up placing two screws to secure the cup due to this tendency for it to rotate. Substantial bone graft was placed behind the cup from the reamings. The screws were drilled, measured and appropriate length screw 115, 120 were placed and these had excellent purchase in the bone. The liner was then impacted in place well seated. The cup remained in an excellent position. I then directed attention to the femoral side. I sequentially broached up to a size 7. I then decided to go larger and reamed to an 8 and broached up to an 8 feet, which had an excellent fit and fill. The high offset necks were then used and I chose a high offset probably due to his anatomy, but also due to the fact that I did have to deepen the cup to some degree. The neck length was chosen to be a +12 high offset, which had good stability in extension external rotation and flexion internal rotation. I did have to remove osteophytes with an osteotome both anteriorly and posteriorly around the acetabulum. There did not appear to be any impingement with trialing and there was minimal shuck in full extension. I had irrigated multiple times. I again irrigated at this point and placed the actual size 8 high offset stem [place] impacted it in place. Excellent fit and fill was noted. The +12, 36 ball was impacted and the hip was reduced. Again, I put the hip through range of motion. I was very pleased with the position of the components and in the stability. The final deep irrigation was performed. The tranexamic acid (TXA) was placed and I repaired the minimus with #1 Vicryl suture. I again irrigated, repaired the abductor with #1 Vicryl suture and excellent repair was noted. I did place the Exparel in the deep tissues. The fascia annalee was repaired #1 Vicryl suture in running Stratafix. Subcu was closed with #2-0 Vicryl and the skin with tana. Sterile dressing was applied. He was taken to recovery room in stable condition. There were no known complications. Postoperative x-ray is being done right now. The commercial escrow assistant was instrumental in holding retractors and assisting in reducing and dislocating the hip and assisting in wound closure. REBECCA
== END 2019-11-13 15:20 | disposition home or self-care (01) | DRG 470 ==
LOC: M OR 06:01 → M MS5PR 12:15
PROVIDERS: ADMIT Orthopaedic Surgery; ATTEND Orthopaedic Surgery
PROC: 0SRB02Z Replacement of Left Hip Joint with Metal on Polyethylene Synthetic Substitute, Open Approach (ICD-10-PCS; principal; 2019-11-10 07:30)
DX: M16.12 Unilateral primary osteoarthritis, left hip (principal); E78.5 Hyperlipidemia, unspecified; E03.9 Hypothyroidism, unspecified; J30.9 Allergic rhinitis, unspecified; L57.0 Actinic keratosis; Z96.653 Presence of artificial knee joint, bilateral; Z11.59 Encounter for screening for other viral diseases; Z88.5 Allergy status to narcotic agent; Z79.82 Long term (current) use of aspirin; Z79.899 Other long term (current) drug therapy

== ENCOUNTER → 2020-04-07 | Outpatient (CLI) | payer MEDICARE, OTHER ==
[~2020-04-07] MED LIST changes: -ASPI81TA85 PO; +ASPI81TA86 PO; -LIDOCAINE 1% MDV 20ML VIAL SQ PRN; -LR 1,000 ML IV SCH; +MS C15TA8 PO; +QC A650T3 PO; +TRAM50TA2 PO; +XARE10TA PO
[2020-04-07 11:33] LABS: BASO % 0.7 % (0.0-1.0); EOS # 0.1 10^3/uL (0.0-0.5); EOS % 1.9 % (0.0-3.0); HEMATOCRIT 39.8 % (42.0-52.0); HEMOGLOBIN 12.6 g/dl (13.5-17.5); LYMPH # 1.2 10^3/uL (1.5-5.0); LYMPH % 20.9 % (24.0-44.0); MEAN CORPUSCULAR HEMOGLOBIN 29.4 pg (27.0-33.0); MEAN CORPUSCULAR HGB CONC 31.7 g/dl (32.0-36.5); MEAN CORPUSCULAR VOLUME 92.8 fl (80.0-96.0); MONO # 0.7 10^3/uL (0.0-0.8); MONO % 12.7 % (0.0-5.0); NEUTROPHILS # 3.6 10^3/uL (1.5-8.5); NEUTROPHILS % 63.6 % (36.0-66.0); PLATELET COUNT, AUTOMATED 261 10^3/uL (150-450); RED BLOOD COUNT 4.29 10^6/uL (4.30-6.10); WHITE BLOOD COUNT 5.7 10^3/uL (4.0-10.0)
== END ==
LOC: M WUC 08:54
PROVIDERS: ATTEND Family Medicine
DX: D64.9 Anemia, unspecified (principal)

== ENCOUNTER → 2020-09-20 | Outpatient (CLI) | payer MEDICARE, OTHER ==
[2020-09-20 10:10] LABS: BASO % 0.6 % (0.0-1.0); EOS # 0.1 10^3/uL (0.0-0.5); EOS % 2.2 % (0.0-3.0); HEMATOCRIT 39.8 % (42.0-52.0); LYMPH # 1.1 10^3/uL (1.5-5.0); LYMPH % 20.3 % (24.0-44.0); MEAN CORPUSCULAR HEMOGLOBIN 31.1 pg (27.0-33.0); MEAN CORPUSCULAR HGB CONC 32.7 g/dl (32.0-36.5); MEAN CORPUSCULAR VOLUME 95.2 fl (80.0-96.0); MONO # 0.7 10^3/uL (0.0-0.8); MONO % 12.5 % (2.0-8.0); NEUTROPHILS # 3.4 10^3/uL (1.5-8.5); PLATELET COUNT, AUTOMATED 234 10^3/uL (150-450); RED BLOOD COUNT 4.18 10^6/uL (4.30-6.10); WHITE BLOOD COUNT 5.4 10^3/uL (4.0-10.0)
[2020-09-20 10:52] LABS: ALBUMIN 3.7 GM/DL (3.2-5.2); ALT/SGPT 26 U/L (12-78); BILIRUBIN,TOTAL 0.5 MG/DL (0.2-1.0); BLOOD UREA NITROGEN 13 MG/DL (7-18); CALCIUM LEVEL 9.4 MG/DL (8.8-10.2); CARBON DIOXIDE LEVEL 27 MEQ/L (21-32); CHLORIDE LEVEL 106 MEQ/L (98-107); CHOLESTEROL LEVEL 154 MG/DL (<200); CHOLESTEROL RISK RATIO 1.855 (<5); CREATININE FOR GFR 0.58 MG/DL (0.70-1.30); FREE T4 0.92 NG/DL (0.76-1.46); GLOMERULAR FILTRATION RATE > 60.0 (>42); GLUCOSE, FASTING 84 MG/DL (70-100); HDL CHOLESTEROL 83 MG/DL (>40); LDL CHOLESTEROL 64 MG/DL (<100); NON-HDL-C 71 MG/DL; POTASSIUM SERUM 4.4 MEQ/L (3.5-5.1); SODIUM LEVEL 140 MEQ/L (136-145); TOTAL PROTEIN 7.1 GM/DL (6.4-8.2); TRIGLYCERIDES LEVEL 34 MG/DL (<150)
== END ==
LOC: M WUC 08:33
PROVIDERS: ATTEND Nurse Practitioner Family
DX: E03.9 Hypothyroidism, unspecified (principal); E78.2 Mixed hyperlipidemia; Z12.5 Encounter for screening for malignant neoplasm of prostate; D64.9 Anemia, unspecified
CPT/HCPCS: 36415; 80053; 80061; 84439; 84443; 85025; G0103

== ENCOUNTER → 2020-09-22 | Outpatient (CLI) | payer MEDICARE, OTHER | LOC: M WUC 13:32 | PROVIDERS: ATTEND Nurse Practitioner Family | DX: D64.9 Anemia, unspecified (principal) ==

== ENCOUNTER → 2021-03-09 | Outpatient (CLI) | payer MEDICARE, OTHER ==
[2021-03-09 10:27] LABS: BASO % 0.5 % (0.0-1.0); EOS # 0.1 10^3/uL (0.0-0.5); EOS % 2.3 % (0.0-3.0); HEMATOCRIT 39.1 % (42.0-52.0); LYMPH # 1.1 10^3/uL (1.5-5.0); LYMPH % 18.7 % (24.0-44.0); MEAN CORPUSCULAR HEMOGLOBIN 31.7 pg (27.0-33.0); MEAN CORPUSCULAR HGB CONC 33.2 g/dl (32.0-36.5); MEAN CORPUSCULAR VOLUME 95.4 fl (80.0-96.0); MONO # 0.7 10^3/uL (0.0-0.8); MONO % 11.8 % (2.0-8.0); NEUTROPHILS # 3.8 10^3/uL (1.5-8.5); NEUTROPHILS % 66.3 % (36.0-66.0); PLATELET COUNT, AUTOMATED 248 10^3/uL (150-450); WHITE BLOOD COUNT 5.7 10^3/uL (4.0-10.0)
[2021-03-09 12:32] LABS: ALT/SGPT 32 U/L (12-78); BILIRUBIN,TOTAL 0.5 MG/DL (0.2-1.0); BLOOD UREA NITROGEN 16 MG/DL (7-18); CALCIUM LEVEL 9.1 MG/DL (8.8-10.2); CARBON DIOXIDE LEVEL 27 MEQ/L (21-32); CHLORIDE LEVEL 108 MEQ/L (98-107); CHOLESTEROL LEVEL 165 MG/DL (<200); CREATININE FOR GFR 0.59 MG/DL (0.70-1.30); GLOMERULAR FILTRATION RATE > 60.0 (>42); GLUCOSE, FASTING 92 MG/DL (70-100); HDL CHOLESTEROL 75 MG/DL (>40); NON-HDL-C 90 MG/DL; POTASSIUM SERUM 4.6 MEQ/L (3.5-5.1); SODIUM LEVEL 139 MEQ/L (136-145); TRIGLYCERIDES LEVEL 33 MG/DL (<150)
[2021-03-09 12:33] LABS: ALBUMIN 3.6 GM/DL (3.2-5.2); FERRITIN 54 NG/ML (26-388); LDL CHOLESTEROL 83 MG/DL (<100)
== END ==
LOC: M WUC 08:21
PROVIDERS: ATTEND Nurse Practitioner Family
DX: E78.2 Mixed hyperlipidemia (principal); Z86.2 Personal history of diseases of the blood and blood-forming organs and certain disorders involving the immune mechanism

== ENCOUNTER → 2021-09-28 | Outpatient (CLI) | payer MEDICARE, OTHER ==
[2021-09-28 09:52] LABS: BASO % 0.7 % (0.0-1.0); EOS # 0.2 10^3/uL (0.0-0.5); EOS % 2.5 % (0.0-3.0); HEMATOCRIT 39.8 % (42.0-52.0); HEMOGLOBIN 13.2 g/dl (13.5-17.5); LYMPH # 0.9 10^3/uL (1.5-5.0); LYMPH % 15.8 % (24.0-44.0); MEAN CORPUSCULAR HEMOGLOBIN 31.2 pg (27.0-33.0); MEAN CORPUSCULAR HGB CONC 33.2 g/dl (32.0-36.5); MEAN CORPUSCULAR VOLUME 94.1 fl (80.0-96.0); MONO # 0.8 10^3/uL (0.0-0.8); MONO % 13.9 % (2.0-8.0); NEUTROPHILS # 3.9 10^3/uL (1.5-8.5); NEUTROPHILS % 66.6 % (36.0-66.0); PLATELET COUNT, AUTOMATED 235 10^3/uL (150-450); RED BLOOD COUNT 4.23 10^6/uL (4.30-6.10); WHITE BLOOD COUNT 5.9 10^3/uL (4.0-10.0)
[2021-09-28 10:26] LABS: ALT/SGPT 32 U/L (12-78); BLOOD UREA NITROGEN 18 MG/DL (7-18); CALCIUM LEVEL 9.6 MG/DL (8.8-10.2); CARBON DIOXIDE LEVEL 26 MEQ/L (21-32); CHLORIDE LEVEL 107 MEQ/L (98-107); CREATININE FOR GFR 0.58 MG/DL (0.70-1.30); GLOMERULAR FILTRATION RATE > 60.0 (>42); GLUCOSE, FASTING 96 MG/DL (70-100); POTASSIUM SERUM 4.4 MEQ/L (3.5-5.1); SODIUM LEVEL 140 MEQ/L (136-145)
[2021-09-28 10:27] LABS: BILIRUBIN,TOTAL 0.5 MG/DL (0.2-1.0); CHOLESTEROL LEVEL 165 MG/DL (<200); CHOLESTEROL RISK RATIO 2.088 (<5); FERRITIN 61 NG/ML (26-388); FREE T4 0.95 NG/DL (0.76-1.46); HDL CHOLESTEROL 79 MG/DL (>40); LDL CHOLESTEROL 80 MG/DL (<100); NON-HDL-C 86 MG/DL; TOTAL PROTEIN 7.4 GM/DL (6.4-8.2); TRIGLYCERIDES LEVEL 31 MG/DL (<150)
== END ==
LOC: M WUC 08:14
PROVIDERS: ATTEND Nurse Practitioner Family
DX: E03.9 Hypothyroidism, unspecified (principal); E78.2 Mixed hyperlipidemia; Z86.2 Personal history of diseases of the blood and blood-forming organs and certain disorders involving the immune mechanism

== ENCOUNTER → 2022-03-15 | Outpatient (CLI) | payer MEDICARE, OTHER ==
[~2022-03-15] MED LIST changes: -GLUCTAB6 PO; +GLUCTAB7 PO
[2022-03-15 10:18] LABS: BASO % 0.6 % (0.0-1.0); EOS # 0.1 10^3/uL (0.0-0.5); EOS % 2.2 % (0.0-3.0); HEMATOCRIT 40.4 % (42.0-52.0); HEMOGLOBIN 13.2 g/dl (13.5-17.5); LYMPH % 15.7 % (24.0-44.0); MEAN CORPUSCULAR HEMOGLOBIN 31.7 pg (27.0-33.0); MEAN CORPUSCULAR HGB CONC 32.7 g/dl (32.0-36.5); MEAN CORPUSCULAR VOLUME 97.1 fl (80.0-96.0); MONO # 0.8 10^3/uL (0.0-0.8); MONO % 11.9 % (2.0-8.0); NEUTROPHILS # 4.4 10^3/uL (1.5-8.5); NEUTROPHILS % 69.1 % (36.0-66.0); PLATELET COUNT, AUTOMATED 240 10^3/uL (150-450); RED BLOOD COUNT 4.16 10^6/uL (4.30-6.10); WHITE BLOOD COUNT 6.4 10^3/uL (4.0-10.0)
[2022-03-15 10:39] LABS: HEMOGLOBIN A1c 5.7 %
[2022-03-15 11:07] LABS: ALBUMIN 3.7 GM/DL (3.2-5.2); ALT/SGPT 32 U/L (12-78); BILIRUBIN,TOTAL 0.4 MG/DL (0.2-1.0); BLOOD UREA NITROGEN 15 MG/DL (7-18); CALCIUM LEVEL 9.3 MG/DL (8.8-10.2); CARBON DIOXIDE LEVEL 27 MEQ/L (21-32); CHLORIDE LEVEL 106 MEQ/L (98-107); CHOLESTEROL LEVEL 163 MG/DL (<200); CHOLESTEROL RISK RATIO 2.012 (<5); CREATININE FOR GFR 0.69 MG/DL (0.70-1.30); FERRITIN 66 NG/ML (26-388); GLOMERULAR FILTRATION RATE > 60.0 (>42); GLUCOSE, FASTING 98 MG/DL (70-100); HDL CHOLESTEROL 81 MG/DL (>40); IRON (FE) 94 UG/DL (65-175); LDL CHOLESTEROL 77 MG/DL (<100); NON-HDL-C 82 MG/DL; PERCENT SATURATION 28.9 % (19.7-50.0); POTASSIUM SERUM 4.3 MEQ/L (3.5-5.1); SODIUM LEVEL 137 MEQ/L (136-145); TOTAL IRON BINDING CAPACITY 325 UG/DL (250-450); TOTAL PROTEIN 7.1 GM/DL (6.4-8.2); TRIGLYCERIDES LEVEL 27 MG/DL (<150)
== END ==
LOC: M WUC 08:35
PROVIDERS: ATTEND Family Medicine
DX: E03.9 Hypothyroidism, unspecified (principal); E66.3 Overweight; E78.2 Mixed hyperlipidemia; Z86.2 Personal history of diseases of the blood and blood-forming organs and certain disorders involving the immune mechanism

== ENCOUNTER → 2022-09-18 | Outpatient (CLI) | payer MEDICARE, OTHER ==
[2022-09-18 12:54] LABS: BASO % 0.7 % (0.0-1.0); EOS # 0.2 10^3/uL (0.0-0.5); EOS % 2.5 % (0.0-3.0); HEMATOCRIT 40.1 % (42.0-52.0); HEMOGLOBIN 13.2 g/dl (13.5-17.5); LYMPH # 1.2 10^3/uL (1.5-5.0); LYMPH % 20.5 % (24.0-44.0); MEAN CORPUSCULAR HEMOGLOBIN 31.6 pg (27.0-33.0); MEAN CORPUSCULAR HGB CONC 32.9 g/dl (32.0-36.5); MEAN CORPUSCULAR VOLUME 95.9 fl (80.0-96.0); MONO # 0.7 10^3/uL (0.0-0.8); MONO % 11.4 % (2.0-8.0); NEUTROPHILS # 3.8 10^3/uL (1.5-8.5); NEUTROPHILS % 64.4 % (36.0-66.0); PLATELET COUNT, AUTOMATED 240 10^3/uL (150-450); RED BLOOD COUNT 4.18 10^6/uL (4.30-6.10)
[2022-09-18 13:24] LABS: FERRITIN 45.1 NG/ML (10.5-307.3); PERCENT SATURATION 26.6 % (19.7-50.0); THYROID STIMULATING HORMONE 2.014 uIU/ML (0.55-4.78)
== END ==
LOC: M WUC 08:50
PROVIDERS: ATTEND Family Medicine
DX: Z86.2 Personal history of diseases of the blood and blood-forming organs and certain disorders involving the immune mechanism (principal); Z12.5 Encounter for screening for malignant neoplasm of prostate
CPT/HCPCS: 36415; 82728; 83550; 84443; 85025; G0103

== ENCOUNTER → 2023-03-20 | Outpatient (CLI) | payer MEDICARE, OTHER ==
[2023-03-20 11:35] LABS: BASO % 0.6 % (0.0-1.0); EOS # 0.2 10^3/uL (0.0-0.5); HEMATOCRIT 40.1 % (42.0-52.0); HEMOGLOBIN 13.4 g/dl (13.5-17.5); LYMPH # 1.2 10^3/uL (1.5-5.0); LYMPH % 17.7 % (24.0-44.0); MEAN CORPUSCULAR HEMOGLOBIN 32.1 pg (27.0-33.0); MEAN CORPUSCULAR HGB CONC 33.4 g/dl (32.0-36.5); MEAN CORPUSCULAR VOLUME 96.2 fl (80.0-96.0); MONO # 0.9 10^3/uL (0.0-0.8); MONO % 13.4 % (2.0-8.0); NEUTROPHILS # 4.4 10^3/uL (1.5-8.5); NEUTROPHILS % 64.9 % (36.0-66.0); PLATELET COUNT, AUTOMATED 252 10^3/uL (150-450); RED BLOOD COUNT 4.17 10^6/uL (4.30-6.10); WHITE BLOOD COUNT 6.7 10^3/uL (4.0-10.0)
[2023-03-20 12:03] LABS: IRON (FE) 104 UG/DL (65-175); PERCENT SATURATION 32.6 % (19.7-50.0); TOTAL IRON BINDING CAPACITY 319 UG/DL (250-425)
[2023-03-20 12:14] LABS: ALBUMIN 3.9 G/DL (3.2-5.2); ALKALINE PHOSPHATASE 102 U/L (46-116); ALT/SGPT 33 U/L (7.0-40); AST/SGOT 27 U/L (<34); BILIRUBIN,TOTAL 0.7 MG/DL (0.3-1.2); BLOOD UREA NITROGEN 16 MG/DL (9-23); CALCIUM LEVEL 9.2 MG/DL (8.3-10.6); CARBON DIOXIDE LEVEL 27 MMOL/L (20-31); CHLORIDE LEVEL 104 MMOL/L (98-107); CHOLESTEROL LEVEL 159 MG/DL (<200); CREATININE FOR GFR 0.65 MG/DL (0.70-1.30); FERRITIN 50.5 NG/ML (10.5-307.3); GLOMERULAR FILTRATION RATE > 60.0 (>42); GLUCOSE, FASTING 82 MG/DL (74-106); POTASSIUM SERUM 4.3 MMOL/L (3.5-5.1); SODIUM LEVEL 139 MMOL/L (136-145); THYROID STIMULATING HORMONE 1.963 uIU/ML (0.55-4.78); TOTAL PROTEIN 7.1 G/DL (5.7-8.2); TRIGLYCERIDES LEVEL 34 MG/DL (<150)
[2023-03-20 13:13] LABS: CHOLESTEROL RISK RATIO 2.02 (<5); HDL CHOLESTEROL 78.5 MG/DL (>40); LDL CHOLESTEROL 73.7 MG/DL (<100); NON-HDL-C 80.5 MG/DL
== END ==
LOC: M WUC 08:16
PROVIDERS: ATTEND Family Medicine
DX: Z12.5 Encounter for screening for malignant neoplasm of prostate (principal); Z86.2 Personal history of diseases of the blood and blood-forming organs and certain disorders involving the immune mechanism; E03.9 Hypothyroidism, unspecified; E78.2 Mixed hyperlipidemia
CPT/HCPCS: 36415; 80053; 80061; 82728; 83550; 84443; 85025; G0103

== ENCOUNTER → 2023-09-06 | Outpatient (CLI) | payer MEDICARE, OTHER ==
[2023-09-06 11:15] LABS: ALBUMIN 3.7 G/DL (3.2-5.2); ALKALINE PHOSPHATASE 101 U/L (46-116); ALT/SGPT 26 U/L (7.0-40); AST/SGOT 19 U/L (<34); BILIRUBIN,TOTAL 0.6 MG/DL (0.3-1.2); BLOOD UREA NITROGEN 15 MG/DL (9-23); CALCIUM LEVEL 9.3 MG/DL (8.3-10.6); CARBON DIOXIDE LEVEL 30 MMOL/L (20-31); CHLORIDE LEVEL 107 MMOL/L (98-107); CHOLESTEROL LEVEL 146 MG/DL (<200); CHOLESTEROL RISK RATIO 2.09 (<5); CREATININE FOR GFR 0.58 MG/DL (0.70-1.30); GLOMERULAR FILTRATION RATE > 60.0 (>42); GLUCOSE, FASTING 93 MG/DL (74-106); HDL CHOLESTEROL 69.8 MG/DL (>40); IRON (FE) 79 UG/DL (65-175); LDL CHOLESTEROL 68.4 MG/DL (<100); NON-HDL-C 76.2 MG/DL; PERCENT SATURATION 26.4 % (19.7-50.0); POTASSIUM SERUM 4.7 MMOL/L (3.5-5.1); SODIUM LEVEL 141 MMOL/L (136-145); TOTAL IRON BINDING CAPACITY 299 UG/DL (250-425); TOTAL PROTEIN 6.8 G/DL (5.7-8.2); TRIGLYCERIDES LEVEL 39 MG/DL (<150)
[2023-09-06 11:17] LABS: TOTAL 25(OH) VITAMIN D 30.3 NG/ML (20.0-100.0)
[2023-09-06 11:18] LABS: BASO # 0.1 10^3/uL (0.0-0.2); BASO % 0.9 % (0.0-1.0); EOS # 0.1 10^3/uL (0.0-0.5); EOS % 2.4 % (0.0-3.0); HEMATOCRIT 40.2 % (42.0-52.0); HEMOGLOBIN 13.1 g/dl (13.5-17.5); LYMPH # 1.1 10^3/uL (1.5-5.0); LYMPH % 20.7 % (24.0-44.0); MEAN CORPUSCULAR HEMOGLOBIN 31.2 pg (27.0-33.0); MEAN CORPUSCULAR HGB CONC 32.6 g/dl (32.0-36.5); MEAN CORPUSCULAR VOLUME 95.7 fl (80.0-96.0); MONO # 0.8 10^3/uL (0.0-0.8); MONO % 13.7 % (2.0-8.0); NEUTROPHILS # 3.4 10^3/uL (1.5-8.5); NEUTROPHILS % 61.8 % (36.0-66.0); PLATELET COUNT, AUTOMATED 238 10^3/uL (150-450); WHITE BLOOD COUNT 5.5 10^3/uL (4.0-10.0)
== END ==
LOC: M WUC 08:16
PROVIDERS: ATTEND Physician Assistant
DX: Z00.00 Encounter for general adult medical examination without abnormal findings (principal); E78.00 Pure hypercholesterolemia, unspecified; D50.9 Iron deficiency anemia, unspecified

== ENCOUNTER → 2024-04-16 | Outpatient (REF) | payer MEDICARE, OTHER ==
[2024-04-16 18:55] LABS: BASO % 0.4 % (0.0-1.0); EOS # 0.1 10^3/uL (0.0-0.5); EOS % 1.3 % (0.0-3.0); HEMATOCRIT 41.9 % (42.0-52.0); HEMOGLOBIN 13.3 g/dl (13.5-17.5); LYMPH # 1.2 10^3/uL (1.5-5.0); LYMPH % 17.3 % (24.0-44.0); MEAN CORPUSCULAR HEMOGLOBIN 30.9 pg (27.0-33.0); MEAN CORPUSCULAR HGB CONC 31.7 g/dl (32.0-36.5); MEAN CORPUSCULAR VOLUME 97.4 fl (80.0-96.0); MONO # 0.8 10^3/uL (0.0-0.8); MONO % 11.2 % (2.0-8.0); NEUTROPHILS # 4.7 10^3/uL (1.5-8.5); NEUTROPHILS % 69.4 % (36.0-66.0); PLATELET COUNT, AUTOMATED 289 10^3/uL (150-450); WHITE BLOOD COUNT 6.8 10^3/uL (4.0-10.0)
[2024-04-16 19:23] LABS: ALBUMIN 3.7 G/DL (3.2-5.2); ALKALINE PHOSPHATASE 113 U/L (40-129); ALT/SGPT 22 U/L (7.0-40); AST/SGOT 16 U/L (<34); BILIRUBIN,TOTAL 0.5 MG/DL (0.3-1.2); BLOOD UREA NITROGEN 15 MG/DL (9-23); CALCIUM LEVEL 9.3 MG/DL (8.3-10.6); CARBON DIOXIDE LEVEL 27 MMOL/L (20-31); CHLORIDE LEVEL 105 MMOL/L (98-107); CHOLESTEROL LEVEL 157 MG/DL (<200); CHOLESTEROL RISK RATIO 2.22 (<5); CREATININE FOR GFR 0.59 MG/DL (0.70-1.30); GLOMERULAR FILTRATION RATE > 60.0 (>42); GLUCOSE, FASTING 83 MG/DL (74-106); HDL CHOLESTEROL 70.7 MG/DL (>40); LDL CHOLESTEROL 78.7 MG/DL (<100); NON-HDL-C 86.3 MG/DL; POTASSIUM SERUM 4.8 MMOL/L (3.5-5.1); SODIUM LEVEL 140 MMOL/L (136-145); TOTAL PROTEIN 7.4 G/DL (5.7-8.2); TRIGLYCERIDES LEVEL 38 MG/DL (<150)
== END ==
LOC: M SFHCLERA 08:47
PROVIDERS: ATTEND Family Medicine
DX: Z86.2 Personal history of diseases of the blood and blood-forming organs and certain disorders involving the immune mechanism (principal); E03.9 Hypothyroidism, unspecified; E78.2 Mixed hyperlipidemia